=== PATIENT | female | born 1930 | race Caucasian/White ===

== ENCOUNTER 2017-05-31 19:48 | Emergency (ER) | payer MEDICARE, OTHER ==
[~2017-05-31] VITALS: Ht 157.5 cm; Wt 51.3 kg
[~2017-05-31 19:48] MED LIST: AZITHROMYCIN 2250 MG PO; B-121000 MC2 PO; BACTRIM DS TAB1 EACH PO; BONIVA; CEFPODOXIME PR200 M1 PO; CIMZIA400 MG SUBQ; CIPRO250 M1 PO; CLARITIN10 MG PO; COLACE100 MG PO; CRANBERRY200 MG PO; ELIQUIS2.5 MG PO; ELIQUIS5 MG PO; ENOXAPARIN30 MG/0.1 SUBQ; FLOMAX0.4 MG PO; FOLIC ACID0.4 MG PO; FOLIC ACID1 MG PO; HI-CAL500 MG PO; HYDROCODONE-AP1 EAC6 PO; IRON325 PO; LEVOTHYROXIN0.075 MG PO; LEVOTHYROXIN0.088 MG PO; LEVOTHYROXINE 0.1 MG PO; LIPITOR20 MG PO; MACROBID 100 M100 M2 PO; MACRODANTIN50 M1 PO; MEGACE40 MG/ML GT; MEGESTROL400 MG/11 PO; METHOTREXATE; METHOTREXATE 22.5 MG PO; MIRALAX17 G1 PO; MIRALAX17 GM PO; MOBIC15 MG PO; MOM PO; NAPROSYN500 MG PO; NEURONTIN100 MG PO; NORCO 5-325 TA1 EACH; NYSTATIN 100,0015 G1 TOP; NYSTATIN 1100000 U/M TOP; OMEPRAZOLE 20 M20 M1 PO; OTEZLA1 EAC1 PO; OTEZLA30 MG PO; PREDNISONE 5 MG5 M1 PO; PRILOSEC OTC20 MG PO; PRILOSEC20 MG PO; PROTONIX 20 MG20 M1 PO; RHEUMATREX2.5 MG PO; SENNA; SENNA8.6 MG PO; SERTRALINE HCL50 MG PO; SYNTHROID112 MCG PO; TESSALON PERLE100 MG PO; TRAMADOL 50 MG50 MG PO; TRANSDERM-SCO1 PATC1 TOP; TYLENOL325 MG PO; VITAMIN B-121000 MC1 PO; VITAMIN B-12500 MCG PO; VITAMIN B122500 MCG PO; VITAMIN D 5050000 I1 PO; ZOFRAN4 MG PO; ZOLOFT; ZOLOFT100 MG PO; ZOLOFT50 MG PO
[2017-05-31 21:47] LABS: URINE BILIRUBIN NEGATIVE (Negative); URINE BLOOD 3+ (Negative); URINE CLARITY CLEAR; URINE COLOR YELLOW; URINE GLUCOSE-RANDOM NEGATIVE (Negative); URINE KETONES NEGATIVE (Negative); URINE LEUKOCYTES-REFLEX NEGATIVE (Negative); URINE NITRITE-REFLEX NEGATIVE (Negative); URINE PROTEIN NEGATIVE (Negative); URINE SPECIFIC GRAVITY >= 1.030 (1.005-1.030); URINE UROBILINOGEN 0.2 E.U./dl (0.2-1.0)
[2017-05-31 21:52] LABS: ABSOLUTE LYMPHOCYTES 1.4 thou/uL (0.8-5.3); ABSOLUTE MONOCYTES 0.7 thou/uL (0.0-1.2); ABSOLUTE NEUTROPHILS 4.1 thou/uL (1.6-8.1); BASOPHILS 0.6 %; EOSINOPHILS 0.4 %; HEMATOCRIT 37.5 % (37.0-47.0); HEMOGLOBIN 12.5 gm/dL (12.0-15.0); LYMPHOCYTES 22.1 %; MCH 30.1 pg (26.0-34.0); MCHC 33.4 g/dL (28.0-37.0); MCV 90.2 fL (80.0-100.0); MONOCYTES 11.2 %; MPV 7.3 fl. (7.2-11.1); NUCLEATED RBCS 0 /100WBC; PLATELET COUNT* 195 thou/uL (150-400); POLYS 65.7 %; RBC 4.16 mil/uL (4.20-5.00); RDW-CV 14.9 % (10.5-14.5); WBC 6.3 thou/uL (4.0-11.0)
[2017-05-31 21:56] LABS: APTT 38.7 Seconds (25.0-31.3); INR 1.2; PROTIME 11.5 Seconds (9.20-11.50)
[2017-05-31 21:59] LABS: ANION GAP 8 mmol/L (7-16); BUN 33 mg/dL (7-18); CALCIUM 8.9 mg/dL (8.5-10.1); CHLORIDE 104 mmol/L (98-107); CO2 27 mmol/L (21-32); CREATININE 1.1 mg/dL (0.6-1.3); GLUCOSE 145 mg/dL (70-99); POTASSIUM 4.7 mmol/L (3.5-5.1); SODIUM 139 mmol/L (136-145)
[2017-05-31 22:07] LABS: ALBUMIN 3.4 g/dL (3.4-5.0); ALKALINE PHOSPHATASE 58 U/L (46-116); LIPASE 245 U/L (73-393); SGOT 16 U/L (15-37); SGPT 24 U/L (30-65); TOTAL BILIRUBIN 0.2 mg/dL (<0.1-1.0); TOTAL PROTEIN 6.6 g/dL (6.4-8.2); TROPONIN-I LEVEL <0.06 ng/mL (<0.06)
[2017-05-31 23:16] LABS: CASTS None Seen /LPF (None Seen); SQUAMOUS >10 Many /LPF (0-3)
[2017-05-31 23:17] LABS: BACTERIA-REFLEX 1-9 Few /HPF (None Seen); CRYSTALS None Seen /LPF (None Seen); TRANSITIONAL EPITHEL CELL 0-3 Few /LPF (None Seen); URINE RBC >20 Many /HPF (0-2); URINE WBC-REFLEX None Seen /HPF (0-5)
[2017-05-31] MEDS ORDERED: PREDNISONE 20 M20 MG PO (23:36)
[2017-05-31] MEDS ORDERED: XARELTO10 MG PO (23:36)
[2017-05-31] MEDS ORDERED: AREDS 2 PO (23:40)
[2017-06-01 00:14] VITALS: BP 115/66
--- NOTE | 2017-06-01 15:21 | EKG ---
[place] [address] ELECTROCARDIOGRAM REPORT Name: CEZAR MCDOWELL Room: [facility]#: [id number] Admission: 05/31/17 Attend Phys: Discharge: 06/01/17 Date of : [birth year] Report #: [id number] THIS REPORT FOR: //name// [facility] ED Test Date: 2017-05-31 Test Time: 21:22:40 Pat Name: CEZAR MCDOWELL Department: Room: Gender: F Master Automotive Glass Technician: PATTI : 1930 Requested By: Jay Jay Quach Order Number: [id number] MD: Silvio Langford Measurements Intervals [place] Rate: 84 P: 69 MA: 154 QRS: 6 QRSD: 73 T: 62 QT: 362 QTc: 428 Interpretive Statements Sinus rhythm Compared to ECG 08/29/2016 23:15:38 Sinus tachycardia no longer present Electronically Signed On 06-01-2017 15:20:54 CHEMICAL OPERATIONS SPECIALIST by Silvio Langford [email or web address] <ELECTRONICALLY SIGNED> By: Silvio Langford MD, [facility] 06/01/17 1520 21 21 Silvio Langford MD, FAC /EPI
== END 2017-06-01 00:15 | disposition home or self-care (01) ==
LOC: M.ERS 19:48
PROVIDERS: Family Medicine
DX: R10.30 Lower abdominal pain, unspecified (principal); K21.9 Gastro-esophageal reflux disease without esophagitis; E03.9 Hypothyroidism, unspecified; F32.9 Major depressive disorder, single episode, unspecified; R26.9 Unspecified abnormalities of gait and mobility; M19.90 Unspecified osteoarthritis, unspecified site; Z88.8 Allergy status to other drugs, medicaments and biological substances; Z88.1 Allergy status to other antibiotic agents

== ENCOUNTER → 2017-09-14 | Outpatient (CLI) | payer MEDICARE, OTHER ==
[~2017-09-14] MED LIST changes: +AREDS 2 PO; +CENTANY30 GM TOP; +KEFLEX500 M1 PO; +PREDNISONE 20 M20 MG PO; +REMERON15 MG PO; +THERAGRAN-M PR1 EAC1 PO; +VANCO1GM IV; +XARELTO10 MG PO
== END ==
LOC: M.RAD 12:38
DX: J92.9 Pleural plaque without asbestos (principal); R13.10 Dysphagia, unspecified

== ENCOUNTER 2017-09-23 13:01 | Emergency (ER) | payer MEDICARE, OTHER ==
[~2017-09-23] VITALS: Ht 154.9 cm; Wt 59.9 kg
[~2017-09-23 13:01] MED LIST changes: -CENTANY30 GM TOP; -KEFLEX500 M1 PO; -REMERON15 MG PO; -THERAGRAN-M PR1 EAC1 PO; -VANCO1GM IV
[2017-09-23] MEDS ORDERED: REMERON15 MG PO (13:13)
[2017-09-23 14:04] LABS: ABSOLUTE LYMPHOCYTES 1.2 thou/uL (0.8-5.3); ABSOLUTE MONOCYTES 0.7 thou/uL (0.0-1.2); ABSOLUTE NEUTROPHILS 6.4 thou/uL (1.6-8.1); BASOPHILS 0.3 %; EOSINOPHILS 0.2 %; HEMATOCRIT 34.9 % (37.0-47.0); HEMOGLOBIN 11.8 gm/dL (12.0-15.0); MCH 30.8 pg (26.0-34.0); MCHC 33.8 g/dL (28.0-37.0); MCV 91.2 fL (80.0-100.0); MONOCYTES 8.1 %; MPV 7.3 fl. (7.2-11.1); NUCLEATED RBCS 0 /100WBC; PLATELET COUNT* 160 thou/uL (150-400); POLYS 77.4 %; RBC 3.83 mil/uL (4.20-5.00); RDW-CV 15.6 % (10.5-14.5); WBC 8.3 thou/uL (4.0-11.0)
[2017-09-23 14:08] LABS: CALCIUM 9.2 mg/dL (8.5-10.1); POTASSIUM 3.4 mmol/L (3.5-5.1)
[2017-09-23 14:10] LABS: APTT 55.9 Seconds (25.0-31.3); INR 1.7; PROTIME 16.4 Seconds (9.20-11.50)
[2017-09-23 14:13] LABS: ALBUMIN 3.6 g/dL (3.4-5.0); TOTAL BILIRUBIN 0.7 mg/dL (<0.1-1.0); TOTAL PROTEIN 7.4 g/dL (6.4-8.2)
[2017-09-23] MEDS ORDERED: KEFLEX500 M1 PO (15:27)
[2017-09-23] MEDS ORDERED: BACTRIM DS TAB1 EACH PO (15:27)
[2017-09-23] MEDS ORDERED: CENTANY30 GM TOP (15:35)
[2017-09-23 16:09] VITALS: BP 126/63
== END 2017-09-23 16:10 | disposition home or self-care (01) ==
LOC: M.ERS 13:01
PROVIDERS: Nurse Practitioner Family
DX: L03.313 Cellulitis of chest wall (principal); Z45.2 Encounter for adjustment and management of vascular access device; K21.9 Gastro-esophageal reflux disease without esophagitis; E03.9 Hypothyroidism, unspecified; Z88.8 Allergy status to other drugs, medicaments and biological substances; Z88.1 Allergy status to other antibiotic agents

== ENCOUNTER 2017-09-24 10:27 | Inpatient (IN) | payer MEDICARE, OTHER ==
[2017-09-24] VITALS (7 sets, daily range): BP systolic 124–174; BP diastolic 56–81
[~2017-09-24] VITALS: Ht 152.4 cm; Wt 63.2 kg
--- NOTE | ~2017-09-24 | PROC ---
[address] [address] PROCEDURE REPORT Name: CEZAR MCDOWELL Room: [address] ADM IN M.R.#: [id number] Admission: 09/24/17 Attend Phys: Breezy Panda, Discharge: Date of : [birth year] Report #: [id number] THIS REPORT FOR: //name// For GI report, please see the Provation report in Perceptive 7 content. By: [id number] Records Staff EMILY /SANDRA
[~2017-09-24 10:27] MED LIST changes: +CENTANY30 GM TOP; +KEFLEX500 M1 PO; +REMERON15 MG PO
[2017-09-24 11:06] LABS: URINE BILIRUBIN NEGATIVE (Negative); URINE BLOOD NEGATIVE (Negative); URINE CLARITY CLEAR; URINE COLOR YELLOW; URINE GLUCOSE-RANDOM NEGATIVE (Negative); URINE KETONES TRACE (Negative); URINE LEUKOCYTES-REFLEX NEGATIVE (Negative); URINE NITRITE-REFLEX NEGATIVE (Negative); URINE PROTEIN NEGATIVE (Negative); URINE UROBILINOGEN 0.2 E.U./dl (0.2-1.0)
[2017-09-24 11:27] LABS: ABSOLUTE LYMPHOCYTES 1.3 thou/uL (0.8-5.3); ABSOLUTE MONOCYTES 0.9 thou/uL (0.0-1.2); ABSOLUTE NEUTROPHILS 7.1 thou/uL (1.6-8.1); BASOPHILS 0.5 %; EOSINOPHILS 0.3 %; HEMOGLOBIN 12.3 gm/dL (12.0-15.0); LYMPHOCYTES 13.5 %; MCH 30.7 pg (26.0-34.0); MCHC 34.1 g/dL (28.0-37.0); MCV 90.1 fL (80.0-100.0); MONOCYTES 9.5 %; MPV 7.1 fl. (7.2-11.1); NUCLEATED RBCS 0 /100WBC; PLATELET COUNT* 163 thou/uL (150-400); POLYS 76.2 %; RBC 3.99 mil/uL (4.20-5.00); RDW-CV 15.3 % (10.5-14.5); WBC 9.3 thou/uL (4.0-11.0)
[2017-09-24 11:38] LABS: CALCIUM 8.8 mg/dL (8.5-10.1); CREATININE 0.9 mg/dL (0.6-1.3); POTASSIUM 3.4 mmol/L (3.5-5.1)
[2017-09-24 11:42] LABS: ALBUMIN 3.2 g/dL (3.4-5.0); TOTAL BILIRUBIN 0.7 mg/dL (<0.1-1.0); TOTAL PROTEIN 6.9 g/dL (6.4-8.2)
--- NOTE | 2017-09-24 12:03 | NUR ---
DR. KHAN TO SEE PT TO DISCUSS THE NEED FOR A MIDLINE, PT AND FAMILY AGREE. PT TAKEN TO INFUSION LAB FOR MIDLINE PLACEMENT. IV ANTIBIOTICS NOT GIVEN DUE TO PT NOT HAVING ADQUATE IV.
--- NOTE | 2017-09-24 12:25 | NUR ---
ARRIVED TO INFUSION VIA CART. DISCUSSION WITH PT RISK AND BENIFIT OF MIDLINE. VOICED UNDERSTANDING AND AGREED. LEFT UPPER ARM ASSESSED WITH ULTRASOUND. LEFT BASILIC IDENTIFED AND NOTED TO BE WIDLEY PATENT. 11CM MIDLINE PLACED PER HOSPITAL POLICY. LINE ADVANCED WITH EASE. GOOD BRISK BLOOD RETURN NOTED FLUSHED WITH EASE. LINE SECURED AND RELEASED FOR USE.
[2017-09-24 13:19] LABS: CALCIUM 8.7 mg/dL (8.5-10.1); CREATININE 0.8 mg/dL (0.6-1.3); MAGNESIUM 1.9 mg/dL (1.8-2.4); POTASSIUM 3.4 mmol/L (3.5-5.1)
[2017-09-24 16:51] LABS: BE -2.4 mmol/L (-2 to +3); HCO3 21.5 mmol/L (22.0-26.0); PCO2 34.5 mmHg (35.0-45.0); PO2 82.7 mmHg (75.0-100.0); pH 7.412 (7.340-7.450)
--- NOTE | 2017-09-24 17:32 | NUR ---
ADMITTED PATIENT FROM ED AT 1315. ALERT AND ORIENTED X4. ASSESSMENT COMPLETED AND CHARTED. VSS ON ROOM AIR. PATIENT HAD NO COMPLAINTS OF PAIN, NAUSEA, OR SOA UPON ADMISSION. ADMISSION HISTORY COMPLETED. ANTIBIOTICS AND FLUIDS ORDERED AND ADMINISTERED. PATIENT CALLED OUT AT APPROXIMATELY 1620 WITH COMPLAINT OF SOA, 02 SATS IN THE MID 80'S ON ROOM AIR. 02 APPLIED AND TITRATED TO 3 LITERS TO MAINTAIN SATURATION OF 93%. PATIENTS TEMP WAS WNL BUT IS ELEVATING TO 99.7. DR KHAN NOTIFIED IMMEDIATELY AND HE ORDERED RT TX, ABGS AND TRANSFER TO TELEMETRY. PATIENT TRANSFERRED OFF UNIT TO [facility] AT 1730. HOURLY ROUNDS MAINTAINED WHILE PAT HAS BEEN ON UNIT. NURSING WILL CONTINUE TO MONITOR.
--- NOTE | 2017-09-24 18:46 | NUR ---
PATIENT ARRIVED THIS EVENING FROM ORTHO-SURG PER BED. PATIENT IS ALERT AND ORIENTED X 4. PATIENT PLACED ON THE TELE MONITOR AND VS OBTAINED. PATIENT IS RESTING AT THIS TIME WITHOUT RESPIRATORY DISTRESS. TELE SHOWS SR. WILL REPORT TO CABANA ATTENDANT
[2017-09-25] VITALS: BP 100/61
--- NOTE | 2017-09-25 03:55 | NUR ---
ASSUMED PT CARE AT 1930. ASSESSMENT COMPLETED CHARTED. PT IN BED RESTING AT THIS TIME. PT HAD TEMP EARLIER IN SHIFT AND WAS RESOLVED WITH TAKING OFF HER WARM BLANKET AND COLD WASHRAGS. NO PAIN OR DISCOMFORT NOTED. HARD OF HEARING. FAMILY WENT HOME AROUND 1999 TO SLEEP. WILL CONTINUE TO MONITOR.
[2017-09-25 04:00] VITALS: BP 100/48
[2017-09-25 05:14] LABS: HEMATOCRIT 33.1 % (37.0-47.0); HEMOGLOBIN 10.9 gm/dL (12.0-15.0); MCH 30.3 pg (26.0-34.0); MCHC 32.9 g/dL (28.0-37.0); MCV 92.2 fL (80.0-100.0); MPV 7.4 fl. (7.2-11.1); RBC 3.59 mil/uL (4.20-5.00); RDW-CV 15.8 % (10.5-14.5); WBC 7.9 thou/uL (4.0-11.0)
[2017-09-25 06:02] LABS: CALCIUM 8.6 mg/dL (8.5-10.1); CREATININE 1.3 mg/dL (0.6-1.3); MAGNESIUM 1.9 mg/dL (1.8-2.4); POTASSIUM 3.8 mmol/L (3.5-5.1)
[2017-09-25 08:00] VITALS: BP 95/52
[2017-09-25 11:35] VITALS: BP 85/37
[2017-09-25 15:45] VITALS: BP 85/42
--- NOTE | 2017-09-25 17:55 | NUR ---
RECEIVED REPORT AND ASSUMED CARE AT 0700. VSS. CARDIAC MONITORING IN PLACE. PT DENIES ANY COMPLAINTS OF PAIN. ASSESSMENT COMPLETED CHARTED. DISCUSSED PLAN OF CARE WITH PT, VERBALIZED UNDERSTANDING. PT MIDLINE PARTIALLY PULLED WHEN TRANSFERRING. PER PHYSICIAN, OK TO LEAVE IN AT CURRENT PLACEMENT WITH NEW DRESSING PERIPHERAL LINE. STILL ABLE TO DRAW BLOOD. PT TOLERATING IV ANTIBIOTICS. SLIGHT DROP IN BP, 500 ML BOLUS ADMINISTERED PER ORDERS. VSS. HOURLY ROUNDING COMPELTED, ALL NEEDS MET, POSITION CHANGES MADE EVERY TWO HOURS. PT ON 3L NC, UP WITH ASSIST WITH WALKER TO BATHROOM. NURSING WILL CONTINUE TO MONITOR
[2017-09-25 20:00] VITALS: BP 121/52
[2017-09-26] VITALS (7 sets, daily range): BP systolic 103–154; BP diastolic 47–74
--- NOTE | 2017-09-26 04:34 | NUR ---
ASSUMED PT CARE AT 1930. ASSESSMENT COMPLETED CHARTED. PT LAYING IN BED AT THIS TIME, IV FLUIDS INFUSING. UP WITH STANDBY WITH WALKER. WILL CONTINUE TO MONITOR.
[2017-09-26 05:32] LABS: HEMOGLOBIN 9.4 gm/dL (12.0-15.0); MCH 30.7 pg (26.0-34.0); MCHC 33.4 g/dL (28.0-37.0); MCV 91.8 fL (80.0-100.0); MPV 8.3 fl. (7.2-11.1); NUCLEATED RBCS 0 /100WBC; PLATELET COUNT* 118 thou/uL (150-400); RBC 3.05 mil/uL (4.20-5.00); RDW-CV 16.1 % (10.5-14.5); WBC 5.1 thou/uL (4.0-11.0)
[2017-09-26 05:52] LABS: CALCIUM 8.3 mg/dL (8.5-10.1); CREATININE 1.1 mg/dL (0.6-1.3); POTASSIUM 3.7 mmol/L (3.5-5.1)
[2017-09-26 06:38] LABS: ABSOLUTE LYMPHOCYTES 0.3 thou/uL (0.8-5.3); ABSOLUTE MONOCYTES 0.4 thou/uL (0.0-1.2); ABSOLUTE NEUTROPHILS 4.4 thou/uL (1.6-8.1); PLATELET ESTIMATE ADEQUATE
--- NOTE | 2017-09-26 12:13 | CON ---
[address] [address] CONSULTATION Name: CAROL MCDOWELL Room: [address] IN M.R.#: [id number] Admission: 09/24/17 Attend Phys: Breezy Panda, Discharge: Date of : [birth year] Report #: [id number] THIS REPORT FOR: //name// CC: Candido Panda DATE OF SERVICE: 09/25/2017 CONSULTATION: Infectious Diseases. HISTORY OF PRESENT ILLNESS: Carol Deras is an 87-year-old white female who had a PICC line for 15 months for intermittent fluid infusions when she would get dehydrated. Apparently at home, the patient was having some discomfort at the PICC line insertion site. The dressing was redone and the line became partially displaced when the tape was pulled off. Later that day, the patient got up to go to the bathroom and says, "the PICC line just fell out. The patient went to the Emergency Room on 09/23/2017 for evaluation. It was noted at that time, there was about 5 x 2 cm area of erythema around the PICC line site. The patient otherwise appeared to be doing okay. Interventional Radiology recommended that the patient be treated with Bactrim plus Keflex. Blood cultures x 2 were obtained. The patient was told to come back to the ER when one of the 2 blood cultures began to grow gram-positive cocci. The patient really was not having any other complaints other than some discomfort which she attributed to the PICC line dressing. She denies fevers, chills, sweats. The patient denies any systemic illness related to her PICC line. The patient is 87 and her reliability as a historian may be less than perfect. PAST MEDICAL DIAGNOSES: Include gastroesophageal reflux, hypothyroidism, depression, low back pain due to spinal stenosis as well as a number of compression fractures, particularly at T7. The patient has arthritis. 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 The patient is also on prednisone for a diagnosis which is not clear. She has been a long-term nitrofurantoin, presumably for UTI prophylaxis. ALLERGIES: THE PATIENT NOTES DRUG ALLERGIES TO SCOPOLAMINE, WHICH CAUSES DELIRIUM WELL CIPRO. MEDICATION RECONCILIATION: Current medications are as follows: Ergocalciferol 50,000 units subq weekly, multivitamins daily, folic acid 1 mg daily, prednisone 20 mg daily, rivaroxaban 10 mg daily, B12 1000 mg daily, L-thyroxine 100 mcg daily, pantoprazole 20 mg daily, vancomycin 500 mg q.12 hours, Zosyn 3.375 grams every 8 hours, sertraline 100 mg daily, mirtazapine 7.5 mg at bedtime, tamsulosin 0.4 mg at bedtime, DuoNeb inhaler, mupirocin ointment, IV [place] [address] CONSULTATION Name: BRANDON MCDOWELLOMI JOESPH Room: [address] IN M.R.#: [id number] Admission: 09/24/17 Attend Phys: Breezy Panda, Discharge: Date of : [birth year] Report #: [id number] FAMILY HISTORY: Noncontributory. SOCIAL HISTORY: The patient's chart shows her to be . She lives in a duplex with her daughter on the other side of the duplex. No history of tobacco or alcohol. REVIEW OF SYSTEMS: At this time, the patient really offers no complaints, although she may not be very reliable. She is not aware of fevers, chills, sweats. She is not aware of headache, sinus congestion, sore throat, trouble swallowing. The patient has no cough, chest pain, shortness of breath. No angina, syncope, palpitations. She has no pain from the PICC line IV site. She has no nausea, vomiting, diarrhea, constipation. No urinary complaints. No pain in the extremities. PHYSICAL EXAMINATION: GENERAL: The patient appears her stated age, alert, oriented, comfortable, not in any distress. VITAL SIGNS: Show maximum measured temperature 100.4. The patient was afebrile at the time of my examination. SKIN: Shows no rash. The PICC line site shows a small wound with minimal amount of yellowish serous drainage. The erythema around the site is consistent with just irritation from the dressing, it does not look particularly cellulitic. The patient does have a new midline catheter in the left arm, which has become partially displaced and is bleeding. The nurses are currently repairing that dressing. ENT: Negative. NECK: Supple. CARDIOVASCULAR: Heart sounds normal. LUNGS: Clear. ABDOMEN: Belly soft, nontender. EXTREMITIES: Other than the bleeding, midline catheter unremarkable. NEUROLOGIC: The patient is awake, alert, oriented. LABORATORY DATA: White count is 7.9. Hemoglobin has gone from 12.3 to 10.9 with hydration. Platelet 121,000. Electrolytes normal, BUN 22, creatinine 1.3, glucose 122. Albumin is 3.2. Liver function tests are normal. Sedimentation rate elevated at 50. CRP is 27. Urinalysis is normal. Blood cultures from 09/23/2017 show gram-positive cocci in 1 out of 2 sets. Identification and sensitivities are pending. Blood cultures x 2 from 09/24/2017 are pending at this time. Chest x-ray shows no acute disease. There are pleural plaques noted as well as atherosclerotic disease of the aorta and compression fractures of the spine. IMPRESSION: Displaced PICC line with 1 out of 2 blood cultures [place] [address] CONSULTATION Name: CAROL MCDOWELL Room: [address] IN M.R.#: [id number] Admission: 09/24/17 Attend Phys: Breezy Panda, Discharge: Date of : [birth year] Report #: [id number] This may just represent contamination of the blood culture in a patient with a difficult stick. She really does not have any other evidence to suggest PICC line sepsis. She did have a slight fever. She does have increased inflammatory markers with a sedimentation rate and CRP. She has degenerative joint disease. She is on prednisone, so there may be another underlying inflammatory process that I am not aware of. I suggest that we stop the Zosyn and treat the patient with vancomycin pending results of cultures. If this ultimately is 1 of 4 blood cultures with Coag-negative Staph or diphtheroid, this could probably be attributed as a contaminant. If there is Staph aureus or multiple positive blood cultures, additional treatment will be needed. I would like to check the patient's TSH. We can stop the Zosyn at this point. If the cultures are ultimately suggestive of a contaminated blood culture, the patient will probably be able to go home on no antibiotics in another day or so. I appreciate the opportunity of input in the care of this pleasant patient. Thank you for requesting Infectious Disease consultation. <ELECTRONICALLY SIGNED> By: Andrew Riley MD 09/26/17 1213 0854 [id number] Riley MD /nt
--- NOTE | 2017-09-26 18:49 | NUR ---
ASSUMED RESPONSIBILITY OF PT THIS AM PT IS ALERT AND ORIENTED VENETIE IRA UP WITH STANDBY ASSIST GAITBELT WITH WALKER HAD BM DENIES ANY PAIN OR DISCOMFORT UP IN CHAIR HALF THE DAY IV FLUIDS CONT TO ABUNDIO MIDLINE IV ABT WELL OXYGEN TRIED TO WEAN OFF BUT PT STILL FELT SOA WITH EXERTION AND KEPT 1L ON FOR COMFORT SATS ARE OKAY AT 97% BEGAN ACCUCHECKS FOR ELEVATED BLOOD SUGAR AND INSULIN STARTED NOW CALL LIGHT IN REACH
--- NOTE | 2017-09-27 02:30 | NUR ---
ASSUMED PT CARE AT 1930. ASSESSMENT COMPLETED CHARTED. PT RESTING IN BED AT THIS TIME. NO C/O PAIN OR DISCOMFORT. ABLE TO MAKE NEEDS KNOWN, CALL LIGHT WITHIN REACH. IVF INFUSING AT 70 AN HOUR IN MIDLINE. WILL CONTINUE TO MONITOR.
[2017-09-27 04:00] VITALS: BP 170/89
[2017-09-27 05:01] LABS: HEMATOCRIT 28.2 % (37.0-47.0); HEMOGLOBIN 9.5 gm/dL (12.0-15.0); MCHC 33.8 g/dL (28.0-37.0); MCV 91.9 fL (80.0-100.0); MPV 7.9 fl. (7.2-11.1); RBC 3.06 mil/uL (4.20-5.00); RDW-CV 15.8 % (10.5-14.5); WBC 4.6 thou/uL (4.0-11.0)
[2017-09-27 05:29] LABS: ALBUMIN 2.5 g/dL (3.4-5.0); CALCIUM 8.2 mg/dL (8.5-10.1); CREATININE 0.9 mg/dL (0.6-1.3); POTASSIUM 3.7 mmol/L (3.5-5.1); TOTAL BILIRUBIN 0.2 mg/dL (<0.1-1.0); TOTAL PROTEIN 5.7 g/dL (6.4-8.2)
[2017-09-27 08:30] VITALS: BP 161/71
[2017-09-27 11:30] VITALS: BP 132/65
--- NOTE | 2017-09-27 13:08 | NUR ---
ASSUMED PT CARE AT 0730, FULL ASSESMENT DONE CHARTED. PT A/O X4, VERY [place], WEAK, ASSIST OF 1 TO BATHROOM WITH WALKER, PT IS SOA WITH AMBULATION, ALSO GETS SOA WHEN EATING/TAKING PILLS. PT EATS VERY SLOW. WEARING 1.5L 02 THIS AM. VSS, HR SLIGHTLY ELEVATED, SEPSIS SCREEN NEGATIVE. PT USES CALL LIGHT APPROPRIALTY. FALL PRECATUIONS IN PLACE. WILL CONTINUE WITH PLAN OF CARE.
--- NOTE | 2017-09-27 13:53 | NUR ---
Pt is A&O. Dtr is at bedside. Pt lives at home alone in a duplex, dtr lives in the other duplex. Dtr does cooking, cleaning and driving. Pt is able to complete her own bathing and grooming. Pt has a walker and wc that she can use as needed. Pt was discharged on [facility] in August 2016, Pt has since dc from hospice, but remains on [facility]. Hx of [facility]. Hx of skilled at [facility]. Pt does not wear home o2. Goal is to return home at ar. Following.
[2017-09-27 16:00] VITALS: BP 148/74
[2017-09-27 21:12] VITALS: BP 144/72
[2017-09-27 23:37] VITALS: BP 150/73
[2017-09-28 04:00] VITALS: BP 158/78
[2017-09-28 08:20] VITALS: BP 150/84
--- NOTE | 2017-09-28 08:24 | NUR ---
PT IS ABLE TO COMMUNICATE HER NEEDS TO STAFF WITH MINOR DIFFICULTY; SHE IS VERY HJYV-UK-SCNWURU. SHE HAS DENIED THE NEED FOR PAIN MEDICATION UP TO THIS TIME. SHE IS STILL SOA WITH EXERTION AND SOMETIMES WHILE TAKING MEDS. XARELTO IS BEING HELD UNTIL FURTHER NOTICE FOR POSSIBLE EGD SOON.
[2017-09-28 11:30] VITALS: BP 127/52
--- NOTE | 2017-09-28 14:26 | NUR ---
ASSUMED CARE OF PT AT 0730. PT RESTING IN BED WAITING FOR BREAKFAST. PT A&0X4, TREMORS NOTED. PT DENIES ANY PAIN OR SHORTNESS OF BREATH AT THIS TIME. PT BECOMES SHORT OF BREATH WITH ACTIVITY/ EXERTION. PT TRACING ST ON THE MERCHANDISER RETAIL REPRESENTATIVE. RATE UP TO 120'S. ON 2L NC SAT 97%. PT HAS STRESS INCONT. IVF. PT UP WITH 1 ASSIST WALKER TO BATHROOM. XARELTO ON HOLD PER GI FOR POSSIBLE EGD TOMORROW OR WEDNESDAY. PT GOAL FOR TODAY IS TO KEEP HEART RATE BELOW 110. AM ASSESSMENT CHARTED. MEDICATIONS PER JUN. PT REPOSITIONS SELF WITH REMINDERS. HOURLY ROUNDING OBSERVED. BED IN LOW POSITION. BED/CHAIR ALARM IN PLACE. FALL PRECAUTIONS IN PLACE. CALL LIGHT WITHIN REACH.
[2017-09-28 16:00] VITALS: BP 121/61
--- NOTE | 2017-09-28 17:37 | NUR ---
NO ACUTE CHANGES THROUGHOUT SHIFT. REFER TO CHARTING. PT SLOWLY PROGRESSING TOWARDS GOALS. HEART RATE IN THE 110'S-120'S THROUGHOUT SHIFT, MOSTLY WHEN AMBULATING. PT ALSO HAS NOTED TREMORS. PT IS ASYMPTOMATIC. PT COMPLAINS OF SHORTNESS OF BREATH WITH ACTIVITY BUT WHEN IS ENCOURAGED ON DEEP/PROPER BREATHING TECHNIQUES- PT FEELS BETTER. VANC TROUGH CRITICAL AT 22. PHARMACY RE DOSED NEEDED VANC AND GIVEN PER JUN. GI HERE TO SEE PT. PLAN IS FOR EGD SATURDAY 09/30, PT IS TO NOT RECEIVE XARELTO. PT CONTINUES TO TRACE ST ON THE WAXER. ON 2L NC SAT UPPER 90'S. GERD NOTED. PT HAD BOWEL MOVEMENT TODAY. STRESS INCONT NOTED. IVF. PT UP WITH 1 ASSIST WALKER TO BATHROOM. PT REFUSES TO HAVE CREAM TO TIC LINE AREA. PT DAUGHTERS AT BEDSIDE THIS AFTERNOON AND UPDATED ON CURRENT CARE PLAN. MEDICATIONS PER JUN. PT REPOSITIONS SELF WITH REMINDERS. HOURLY ROUNDING OBSERVED. BED IN LOW POSITION. BED ALARM IN PLACE. FALL PRECAUTIONS IN PLACE. CALL LIGHT WITHIN REACH. WILL CONTINUE PLAN OF CARE.
[2017-09-28 19:45] VITALS: BP 119/86
[2017-09-29] VITALS: BP 125/61
[2017-09-29 04:00] VITALS: BP 142/60
--- NOTE | 2017-09-29 05:31 | NUR ---
RECEIVED REPORT AND ASSUMED CARE AT 1900. VSS. CARDIAC MONITORING IN PLACE. PT DENIES ANY COMPLIANTS OF PAIN. ASSESSMENT COMPLETED CHARTED. PT UP WITH ASSIST WITH WALKER TO BSC. PT ON 2L NC. DISCUSSED PLAN OF CARE WITH PT, VERBALIZED UNDERSTANDING. PT SCHEDULED FOR EGD ON 09/30, PT TO NOT RECEIVE HER XARELTO UNITL AFTER THE PROCEEDURE. MEDICATIONS ADMIN PER ORDERES. HOURLY ROUNDING COMPLETED, ALL NEEDS MET. NURSING WILL CONTINUE TO MONITOR.
[2017-09-29 08:00] VITALS: BP 139/62
--- NOTE | 2017-09-29 10:35 | EKG ---
[place] [address] ELECTROCARDIOGRAM REPORT Name: CEZAR MCDOWELL Room: [address] ADM IN M.R.#: [id number] Admission: 09/24/17 Attend Phys: Breezy Panda, Discharge: Date of : [birth year] Report #: [id number] THIS REPORT FOR: //name// [facility] Test Date: 2017-09-28 Test Time: 18:13:28 Pat Name: CEZAR MCDOWELL Department: Room: [address] Gender: F Renal Medicine Physician: CSIBERT : 1930 Requested By: Breezy Panda Order Number: [id number] Rachelle MD: Jordan Gutierrez Measurements Intervals [place] Rate: 133 P: 63 SD: 134 QRS: -2 QRSD: 73 T: 59 QT: 302 QTc: 450 Interpretive Statements Sinus tachycardia Compared to ECG 05/31/2017 21:22:40 Sinus rhythm no longer present Electronically Signed On 09-29-2017 10:35:07 CDT by Jordan Gutierrez [email or web address] <ELECTRONICALLY SIGNED> By: Jordan Gutierrez MD, [facility] 09/29/17 1035 12 12 Jordan Gutierrez MD, FACC /EPI
[2017-09-29 12:00] VITALS: BP 123/60
--- NOTE | 2017-09-29 12:56 | NUR ---
ASSUMED CARE OF PATIENT THIS AM AT 0730. PATIENT IS ALERT AND ORIENTED X 4. SHE DENIES PAIN AND DISCOMFORT THIS AM. PATIENT HAS BEEN ASSISTED UP TO THE CHAIR. TELE SHOWS SR TO ST. PLANS FOR PROCEDURE BY GI IN THE AM. IV FLUIDS INFUSING PER ORDER. WILL CONTINUE TO MONITOR.
--- NOTE | 2017-09-29 14:45 | CON ---
[address] [address] CONSULTATION Name: JULYCEZAR LEE Room: [address] IN M.R.#: [id number] Admission: 09/24/17 Attend Phys: Breezy Panda, Discharge: Date of : [birth year] Report #: [id number] THIS REPORT FOR: //name// CC: Candido Panda DICTATED BY: aRdha CALDERON DATE OF SERVICE: 09/27/2017 PRIMARY CARE PHYSICIAN: KVNG Caldwell. Please note at the time of this dictation, the patient was seen and physically examined by myself. REASON FOR CONSULTATION: Difficulty swallowing. HISTORY OF THE PRESENT ILLNESS: This is an 87-year-old female who is well known to our practice, who was admitted for some discomfort at her PICC line insertion site where then it had partially been displaced and came out. She was evaluated in the ER and had blood work done and also noted some erythema around the PICC site and was sent home on antibiotics. When the cultures came back for gram-positive cocci, she was informed to come back into the hospital, so that she could get IV antibiotics at that time. During this timeframe, the patient was seen by Dr. Nagy on 03 of August and she underwent an EGD at that time for her complaints of dysphagia and that food was not going down. EGD showed esophagus that was moderately torturous and she had a 3 cm hiatal hernia. No other abnormalities were noted. Dilatation was performed with a Yaquelin dilator with no resistance at 52 and 54 [place]. She then subsequently underwent a barium swallow, which indicated that her esophagus does not empty very easily. She has a lot of spasms with the esophagus and poor emptying of the distal esophagus. In reviewing all of those films and her ongoing issues with dysphagia, it was recommended for her to have undergo an EGD with Botox of the LES or the lower esophageal sphincter to see if this would help facilitate emptying of her esophagus. We were in the process with our office and making arrangements for her to get this done as an outpatient on the inpatient side. We were consulted since the patient is on the inpatient to see if we could do that during her hospitalization. The patient is on Xarelto, which will need to be held and has been held this morning, to be able to do the Botox injections, she is on Xarelto for history of PE. ALLERGIES: CIPROFLOXACIN and SCOPOLAMINE. MEDICATIONS FROM HOME: Include vitamin D, multivitamin, folic acid, prednisone, Xarelto, B12, levothyroxine, pantoprazole, vancomycin, Zosyn, , nitrazepam, [place] [address] CONSULTATION Name: CEZAR MCDOWELL Room: [address] IN M.R.#: [id number] Admission: 09/24/17 Attend Phys: Breezy Panda, Discharge: Date of : [birth year] Report #: [id number] tamsulosin and DuoNeb inhaler. PAST MEDICAL HISTORY: GERD, hypothyroidism, depression, low back pain due to spinal stenosis and history of compression fractures, arthritis and history of PE. The patient has a PICC line for the last 15 months or so for intermittent infusion of fluids per the patient when she would get dehydrated. PAST SURGICAL HISTORY: Negative. FAMILY HISTORY: Noncontributory. SOCIAL HISTORY: She is . She lives in a duplex with her daughter on the other side. No history of tobacco or alcohol use. REVIEW OF SYSTEMS: Twelve-point review of systems is essentially negative except what is mentioned in the HPI. PHYSICAL EXAMINATION: VITAL SIGNS: Temperature 37.2, pulse 88, respirations 16 and blood pressure 170/89. HEART: Regular rate and rhythm. CHEST: Lungs are clear but diminished. ABDOMEN: Soft. Positive bowel sounds in all 4 quadrants with no masses or tenderness noted. LABORATORY DATA: Hemoglobin 9.5, hematocrit 28.2, white count is 4.6 and platelets 134. Sodium 144, potassium 3.7, chloride 112, CO2 of 25, BUN is 20, creatinine 0.9, GFR is 59 and glucose is 118. IMPRESSION: 1. Dysphagia, ongoing. 2. Anticoagulant therapy, Xarelto, pulmonary embolism. 3. Bacteremia, positive blood cultures. 4. Anemia, chronic. 5. Thrombocytopenia. PLAN: 1. We will hold Xarelto. We will need to check with Dr. Monsalve for pending EGD with Botox injection. 2. EGD with Botox to be done on Wednesday or tentatively of this week when she has been off the Xarelto for 3-4 days. 3. Further recommendations will be made after the procedure has been performed and can assess her response. [address] [address] CONSULTATION Name: CEZAR MCDOWELL Room: M.213-P ADM IN M.R.#: [id number] Admission: 09/24/17 Attend Phys: Breezy Panda, Discharge: Date of : [birth year] Report #: [id number] Thank you for allowing us to participate in this patient's care. Please do not hesitate to call with any questions in regard to this consult. <ELECTRONICALLY SIGNED> By: Carlos Agarwal MD 09/29/17 1445 1003 [id number] Agarwal MD /nt
--- NOTE | 2017-09-29 15:57 | NUR ---
Pt's nurse through [facility] is Karina Wiggins, , Pt wants to resume services at pr.
[2017-09-29 16:00] VITALS: BP 141/63
--- NOTE | 2017-09-29 18:19 | 2DMMODE ---
[place] [address] 2 D/M-MODE ECHOCARDIOGRAM Name: CEZAR MCDOWELL Room: [address] IN [facility]#: [id number] Admission: 09/24/17 Attend Phys: Breezy Chaudhry Discharge: Date of : [birth year] Date of Service: 09/29/17 1819 Report #: [id number] THIS REPORT FOR: //name// APPROVED REPORT Study performed: 09/29/2017 15:56:17 EXAM: Comprehensive 2D, Doppler, and color-flow Echocardiogram Patient Location: In-Patient Room #: 213 Status: routine BSA: 1.59 HR: 127 bpm BP: 123/60 mmHg Rhythm: NSR Other Information Study Quality: Good Indications Sepsis 2D Dimensions LVEF(%): 62.49 (>50%) IVSd: 12.15 (7-11mm) LVOT Diam: 20.30 (18-24mm) LVDd: 32.37 mm PWd: 10.06 (7-11mm) Ascending Ao: 33.62 (22-36mm) LVDs: 21.78 (25-40mm) Aortic Root: 32.66 mm Carrion's LVEF: 62.49 % Volumes Left Atrial Volume (Systole) LA ESV Index: 18.80 mL/m2 Aortic Valve AoV Peak Harry.: 1.51 m/s AO Peak Gr.: 9.11 mmHg LVOT Max P.27 mmHg AO Mean Gr.: 4.73 mmHg LVOT Mean P.58 mmHg LVOT Max V: 1.25 m/s AO V2 VTI: 24.53 cm LVOT Mean V: 0.72 m/s ONELIA (VTI): 2.74 cm2 LVOT V1 VTI: 20.79 cm Pulmonary Valve PV Peak Harry.: 1.21 m/s PV Peak Gr.: 5.83 [place] [address] 2 D/M-MODE ECHOCARDIOGRAM Name: CEZAR MCDOWELL Room: [address] IN ..#: [id number] Admission: 09/24/17 Attend Phys: Breezy Chaudhry Discharge: Date of : [birth year] Date of Service: 09/29/17 1819 Report #: [id number] Tricuspid Valve TR Peak Gr.: 28.66 mmHg RVSP: 33.00 mmHg Left Ventricle The left ventricle is normal size. There is normal LV segmental wall motion. There is normal left ventricular wall thickness. Left ventricular systolic function is normal. The left ventricular ejection fraction is within the normal range. LVEF is 60-65%. The left ventricular diastolic function is normal. Right Ventricle The right ventricle is normal size. The right ventricular systolic function is normal. Atria The left atrium size is normal. The right atrium size is normal. Aortic Valve The Aortic valve is sclerotic. No aortic regurgitation is present. There is no aortic valvular stenosis. Mitral Valve The mitral valve is normal in structure. There is no mitral valve regurgitation noted. No evidence of mitral valve stenosis. Tricuspid Valve The tricuspid valve is normal in structure. Mild tricuspid regurgitation. The RVSP is 30-35 mmHg. Pulmonic Valve The pulmonary valve is normal in structure. There is no pulmonic valvular regurgitation. Great Vessels The aortic root is normal in size. IVC is normal in size and collapses with >50% inspiration Pericardium There is no pericardial effusion. <Conclusion> [place] [address] 2 D/M-MODE ECHOCARDIOGRAM Name: CEZAR MCDOWELL Room: [address] IN M.R.#: [id number] Admission: 09/24/17 Attend Phys: Breezy Chaudhry Discharge: Date of : [birth year] Date of Service: 09/29/171818 Report #: [id number] LVEF is 60-65%. The Aortic valve is sclerotic. <ELECTRONICALLY SIGNED> By: Jordan Gutierrez MD, [facility] 09/29/171818 18 1819 Jordan Gutierrez MD, FACC /INF
[2017-09-29 19:30] VITALS: BP 142/64
[2017-09-30] VITALS (8 sets, daily range): BP systolic 131–169; BP diastolic 69–86
--- NOTE | 2017-09-30 04:00 | NUR ---
RECEIVED REPORT AND ASSUMED CARE AT 1900. VSS. CARDIAC MONITORING IN PLACE. PT DENIES ANY COMPLAINTS OF PAIN. ASSESSMENT COMPLETED CHARTED. MEDICATIONS ADMIN PER ORDERS. PT UP WITH ASSIST TO BSC, ON 2L NC. DISCUSSED PLAN OF CARE WITH PT. VERBALIZED UNDERSTANDING. PT COMMUNICATES UNDERSTANDING OF NPO AFTER MIDNIGHT R/T EGD SCHEDULED FOR 09/30/17. HOURLY ROUNDING COMPLETED AND ALL NEEDS MET. NURSING WILL CONTINUE TO MONITOR FOR REMAINDER OF THE SHIFT
--- NOTE | 2017-09-30 11:00 | NUR ---
ASSUMED CARE OF PT AFTER REPORT AT 729. PT A&OX4.VSS. PHYSICAL ASSESSMENT COMPLETED AND CHARTED.PT ON 02 VIA NC 2LPM WITH 97% O2 SAT. PT IV LINE IS PATENT AND INTACT. ST ON TELE. UP WITH 1 ASSIST. MAINTAINED ON NOTHING PER [place]. FOR EGD TODAY. DENIES ANY PAIN OR COMPLAINS AT THIS TIME. CALL LIGHT WITHIN REACH. WILL CONTINUE TO MONITOR PT.
--- NOTE | 2017-09-30 11:00 | NUR ---
ASSUMED CARE OF PT AFTER REPORT AT 0730. PT A&O4. VSS. PHYSICAL ASSESSMENT COMPLETED AND CHARTED.PT ON O2 VIA NASAL CANNULA WITH 97% O2 SAT. ST
[2017-09-30 11:23] LABS: INR 1.1; PROTIME 10.5 Seconds (9.20-11.50)
--- NOTE | 2017-09-30 12:44 | NUR ---
CM spoke with Dr Delgado, anticipate that Pt will need IVABX at [place]. Faxed facesheet and med order to [facility], asked that they contact CM with cost of medication. Family still discussing home with HH and IVABX vs. snf. Following.
--- NOTE | 2017-09-30 15:29 | NUR ---
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 SPOKE WITH DAUGHTER AND SON AND PT REGUARDING RISK AND BENIFIT OF PICC. VOICED UNDERSTANDING AND AGREED. RIGHT UPPER ARM ASSESSED WITH ULTRASOUND. RIGHT BASILIC IDENTIFIED AND NOTED TO BE WIDLEY PATENT. 4FR SINGLE LUMAN POWER PICC PLACED PER HOSPITAL POLICY. TRIM AT 40CM AND ADVANCED 38CM TO LEAVE 2CM EXTERNAL. GOOD BRISK BLOOD RETURN AND FLUSH WITH EASE. TIP OF LINE CONFIRMED WITH SHERLOCK 3CG. LINE SECURED AND RELEASED FOR USE. PRIMARY NURSING AWARE
--- NOTE | 2017-09-30 18:32 | NUR ---
PT A&OX4. PT ON O2 VIA NC @ 2LPM WITH 97 O2 SATS.EGD DONE AND REVEALS LA GRADE B REFLUX ESOPHAGITIS. PICC LINE INSERTED ORDERED. 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 PICC LINE DRESSING SATURATED AND WAS CHANGED.ORDERS RECEIVED TO TRANSFER PT TO [facility]. REPORT CALLED TO NURSE TO ASSUME CARE WITH ALL QUESTIONS AND CONCERNS ADDRESSED. PT TRANSFERRED WITH BELONGINGS TO [facility] PER NURSING STAFF VIA WHEELCHAIR AT 1830.
--- NOTE | 2017-09-30 18:41 | NUR ---
I TOOK REPORT ON THE PATIENT FROM [facility] ON TELE. PATIENT [facility] TRANSFERING [facility]. OF 1844, PATIENT STILL IS NOT ON UNIT. I WAS INFORMED IN REPORT THAT PATIENT IS HERE BECAUSE HER CENTRAL LINE BECAME DISLODGED AND WAS INFECTED. MRSA IS IN THE BLOOD AND PATIENT IS ON ISOLATION. NEW PICC WAS PLACED IN THE UPPER RIGHT ARM. PATIENT IS TO GET PROTONIX FOR THE NEXT 60 DAYS. ALERT AND ORIENTED X4, SHE IS NOW MED/SURG STATUS. SHE IS UP WITH X1 ASSIST; FROM HOME ALONE AND PLANS TO D/C ON 10/01. PATIENT ARRIVED AT 1850.
--- NOTE | 2017-10-01 05:40 | NUR ---
PATIENT HAS REMAINED ALERT AND ORIENTED X 4 THROUGHOUT THE SHIFT AND RESTING QUIETLY ON HOURLY ROUNDS. NEWLY ORDERED VANCOMYCIN PROVIDED PER ORDERS POST TROUGH LEVEL. NEW RIGHT PICC FUNCTIONING WELL. INCONT URINE. Q2H CHECKS AND TURNS. AFEBRILE. VITAL SIGNS STABLE. CONTINUE TO MONITOR.
--- NOTE | 2017-10-01 06:18 | NUR ---
LEFT IV LINE THAT WAS ORGINALLY A MIDLINE BUT LATER STATED TO BE A PERIPHERAL LINE DUE TO BEING PARTIALLY PULLED OUT WAS MARKED SUCH. THIS LINE PATENT TO FLUSH. RIGHT UPPER MEDIAL CHEST SITE OF OLD TICC LINE APPEARS TO BE HEALING. AREA IS DRY. SLIGHT PINKNESS BARELY VISABLE. ACTUAL INSERT SITE NOTED BY A SMALL RED SPOT. REDRESSED WITH BANDAID AND ORDERED ABX OINTMENT THIS AM.
[2017-10-01 07:57] VITALS: BP 133/68
--- NOTE | 2017-10-01 10:03 | NUR ---
ASSUMED CARE OF PT THIS AM AROUND 0715- UPON ASSESSMENT PT NOTED TO BE RESTING IN BED- PT A&O X3- CONTINENT VS INCONTINENT OF BOWEL AND BLADDER- ASSIST X1 WITH TRANSFERS- LCTA, RESP EVEN AND UN-LABORED- VSS, O2 SAT 94% ON 1L VIA NC- ABDOMEN SOFT/ROUND/NON-TENDER, BS X4 QUADS- BM NOTED THIS AM- +1 BLE EDEMA NOTED, LEG ELEVATION IN PLACE AND ENCOURAED INDICATED- RUE PICC NOTED INTACT, IVF INFUSING PRESCIBED- LUE MIDLINE D/C'D THIS AM, PRESSURE DRESSING APPLIED- PT UP TO BED SIDE CHAIR THIS AM WITH BREAKFAST, GOOD PO INTAKE NOTED- DENIES ANY C/O PAIN/DISCOMFORT AT THIS TIME- CALL LIGHT AND PERSONAL BELONGINGS WITH IN REACH- HOURLY ROUNDS IN PLACE R/T SAFETY/NEEDS- ALL NEEDS MET AT THIS TIME-WC
[2017-10-01] MEDS ORDERED: THERAGRAN-M PR1 EAC1 PO (10:12)
[2017-10-01 10:42] VITALS: BP 133/68
--- NOTE | 2017-10-01 11:48 | NUR ---
YESSY followed up on pt to dc home with family today and [facility] services to follow with [facility] company providing IV abx. YESSY called and spoke with Cristian/sharmaine of [employer] and faxed needed referral information and orders for resumption of care and nursing, PT, OT. [phone] fax [phone]. YESSY called and spoke with Michael to confirm IV abx and faxed dc orders, med list, PICC line placement information. fax [phone]. Pt family to provide pt ride home.
[2017-10-01 11:51] VITALS: BP 133/68
[2017-10-01] MEDS ORDERED: VANCO1GM IV (12:16)
--- NOTE | 2017-10-01 15:00 | NUR ---
ORDERS RECIEVED FOR [facility]ILMAR TO D/C HOME THIS SHIFT PER WITH TO DOSE ABT PRIOR TO D/C- HERE TO ASSESS WITH ORDERS NOTED FOR VANCO 750MG DAILY X2 WEEKS, WITH F/U IN 2 WEEKS ADN CALL FOR RE[facility] NOTED- SET UP TO MANAGE AND TEACH IV ADMINISTRATION AND CARE, UNABLE TO CONFIRM THAT THEY WILL BE ABLE TO GIVE SCHEDULED VANC AT 1900 TODAY THOUGH- CALLED WITH [facility] RECIEVED TO GIVE DOSE EARLY AT 1300 THIS SHIFT CHANGE TO DAILY AT 1300- DOSE GIVEN THIS SHIFT PRIOR TO D/C INDICATED- PICC TO RUE INTACT AND SL AT TIME OF D/C- D/C TEACHING GIVEN TO PT AND DAUGHTER AT TIME OF D/C, WITH ALL QUESTIONS AND CONCERNS ADDRESSED PRIOR TO D/C- WRITTEN EDUCATION ALONG WITH SCRIPTS PROVIDED TO PT AT TIMEM OF D/C- BELONGINGS PACKED AND ACCOUNTED FOR PER DAUGHTER- PT ESCORTED PER TECH VIA W/C WITH BELONGINGS; SOPHIA AT SIDE TO VEHICLE- D/C AT 1505, NO PROBLEMS TO NOTED AT TIME OF D/C
== END 2017-10-01 15:06 | disposition home health service (06) | DRG 314 ==
LOC: M.ERS 10:27 → M.2W 11:17 → M.TBA-ER 11:17 → M.ORTHSURG 13:39 → M.2W 17:44 → M.3W 09-30 18:55
PROVIDERS: Internal Medicine Gastroenterology; Internal Medicine Infectious Disease; Physician Assistant; ADMIT Family Medicine
PROC: B54NZZA Ultrasonography of Left Upper Extremity Veins, Guidance (ICD-10-PCS; principal; 2017-09-24)
PROC: 05HY33Z Insertion of Infusion Device into Upper Vein, Percutaneous Approach (ICD-10-PCS; principal; 2017-09-24)
PROC: 0D758ZZ Dilation of Esophagus, Via Natural or Artificial Opening Endoscopic (ICD-10-PCS; 2017-09-30)
DX: T82.7XXA Infection and inflammatory reaction due to other cardiac and vascular devices, implants and grafts, initial encounter (principal); E43 Unspecified severe protein-calorie malnutrition; A41.02 Sepsis due to Methicillin resistant Staphylococcus aureus; J96.10 Chronic respiratory failure, unspecified whether with hypoxia or hypercapnia; E03.9 Hypothyroidism, unspecified; F32.9 Major depressive disorder, single episode, unspecified; M19.90 Unspecified osteoarthritis, unspecified site; R26.9 Unspecified abnormalities of gait and mobility; E87.6 Hypokalemia; K21.0 Gastro-esophageal reflux disease with esophagitis; K22.2 Esophageal obstruction; K44.9 Diaphragmatic hernia without obstruction or gangrene; M48.061 Spinal stenosis, lumbar region without neurogenic claudication; D64.9 Anemia, unspecified; D69.6 Thrombocytopenia, unspecified; Z86.711 Personal history of pulmonary embolism; Z90.49 Acquired absence of other specified parts of digestive tract; Z79.52 Long term (current) use of systemic steroids; Z79.899 Other long term (current) drug therapy; Z88.1 Allergy status to other antibiotic agents; Z88.8 Allergy status to other drugs, medicaments and biological substances; Z82.0 Family history of epilepsy and other diseases of the nervous system; Z80.8 Family history of malignant neoplasm of other organs or systems; Z83.3 Family history of diabetes mellitus; Z82.5 Family history of asthma and other chronic lower respiratory diseases

== ENCOUNTER 2018-06-10 12:49 | Inpatient (IN) | payer MEDICARE, OTHER ==
[~2018-06-10] VITALS: Ht 152.4 cm; Wt 63.0 kg
[~2018-06-10 12:49] MED LIST changes: +THERAGRAN-M PR1 EAC1 PO; +VANCO1GM IV
[2018-06-10 12:57] VITALS: BP 128/53
[2018-06-10] MEDS ORDERED: SLOW FE 160MG160 MG PO (13:18)
[2018-06-10] MEDS ORDERED: MACRODANTIN100 MG PO (13:19)
[2018-06-10 14:23] LABS: ABSOLUTE MONOCYTES 0.4 thou/uL (0.0-1.2); BASOPHILS 0.5 %; EOSINOPHILS 0.5 %; HEMATOCRIT 34.5 % (37.0-47.0); HEMOGLOBIN 11.8 gm/dL (12.0-15.0); LYMPHOCYTES 13.8 %; MCH 31.8 pg (26.0-34.0); MCHC 34.3 g/dL (28.0-37.0); MCV 92.8 fL (80.0-100.0); MONOCYTES 5.6 %; MPV 7.3 fl. (7.2-11.1); NUCLEATED RBCS 0 /100WBC; PLATELET COUNT* 184 thou/uL (150-400); POLYS 79.6 %; RBC 3.72 mil/uL (4.20-5.00); RDW-CV 13.9 % (10.5-14.5); WBC 7.6 thou/uL (4.0-11.0)
[2018-06-10 14:44] LABS: ALBUMIN 3.4 g/dL (3.4-5.0); ALKALINE PHOSPHATASE 49 U/L (46-116); ANION GAP 5 mmol/L (7-16); BUN 27 mg/dL (7-18); CALCIUM 9.5 mg/dL (8.5-10.1); CHLORIDE 106 mmol/L (98-107); CO2 32 mmol/L (21-32); CREATININE 1.1 mg/dL (0.6-1.3); GLUCOSE 116 mg/dL (70-99); SGOT 16 U/L (15-37); SGPT 14 U/L (30-65); SODIUM 143 mmol/L (136-145); TOTAL BILIRUBIN 0.5 mg/dL (<0.1-1.0); TOTAL PROTEIN 6.8 g/dL (6.4-8.2); TROPONIN-I LEVEL <0.06 ng/mL (<0.06)
[2018-06-10 15:25] LABS: INFLUENZA A ANTIGEN None Detected (None Detect); INFLUENZA B ANTIGEN None Detected (None Detect)
[2018-06-10 16:05] LABS: URINE BILIRUBIN NEGATIVE (Negative); URINE BLOOD NEGATIVE (Negative); URINE CLARITY CLEAR; URINE COLOR YELLOW; URINE GLUCOSE-RANDOM NEGATIVE (Negative); URINE KETONES NEGATIVE (Negative); URINE LEUKOCYTES-REFLEX NEGATIVE (Negative); URINE NITRITE-REFLEX NEGATIVE (Negative); URINE PROTEIN NEGATIVE (Negative); URINE UROBILINOGEN 0.2 E.U./dl (0.2-1.0)
[2018-06-10 16:14] VITALS: BP 137/67
[2018-06-10 16:50] VITALS: BP 138/66
[2018-06-10 20:00] VITALS: BP 140/68
[2018-06-11] VITALS: BP 141/64
[2018-06-11 04:25] LABS: HEMATOCRIT 31.8 % (37.0-47.0); HEMOGLOBIN 10.8 gm/dL (12.0-15.0); MCH 31.5 pg (26.0-34.0); MCHC 33.9 g/dL (28.0-37.0); MCV 92.8 fL (80.0-100.0); MPV 7.7 fl. (7.2-11.1); RBC 3.43 mil/uL (4.20-5.00); RDW-CV 13.7 % (10.5-14.5); WBC 7.1 thou/uL (4.0-11.0)
[2018-06-11 04:33] VITALS: BP 142/71
[2018-06-11 04:44] LABS: CALCIUM 8.9 mg/dL (8.5-10.1); CREATININE 1.1 mg/dL (0.6-1.3); MAGNESIUM 1.9 mg/dL (1.8-2.4)
[2018-06-11 08:43] VITALS: BP 163/64
[2018-06-11 12:45] VITALS: BP 139/51
[2018-06-11 16:22] VITALS: BP 132/96
[2018-06-12 01:15] VITALS: BP 156/58
[2018-06-12 05:05] LABS: HEMATOCRIT 31.7 % (37.0-47.0); HEMOGLOBIN 10.6 gm/dL (12.0-15.0); MCHC 33.3 g/dL (28.0-37.0); MCV 92.9 fL (80.0-100.0); MPV 7.7 fl. (7.2-11.1); NUCLEATED RBCS 0 /100WBC; PLATELET COUNT* 174 thou/uL (150-400); RBC 3.41 mil/uL (4.20-5.00); RDW-CV 13.9 % (10.5-14.5); WBC 11.1 thou/uL (4.0-11.0)
[2018-06-12 07:48] LABS: ABSOLUTE LYMPHOCYTES 0.9 thou/uL (0.8-5.3); ABSOLUTE MONOCYTES 0.3 thou/uL (0.0-1.2); ABSOLUTE NEUTROPHILS 9.9 thou/uL (1.6-8.1)
[2018-06-12 07:52] LABS: GIANT PLATELETS RARE; PLATELET ESTIMATE ADEQUATE
[2018-06-12 07:53] LABS: ANISOCYTOSIS 2+; OVALOCYTES Occasional; TEARDROPS 1+
[2018-06-12 07:54] LABS: SCHISTOCYTES Occasional
[2018-06-12 10:07] VITALS: BP 138/58
--- NOTE | 2018-06-12 14:59 | EKG ---
[place] [address] ELECTROCARDIOGRAM REPORT Name: CEZAR MCDOWELL Room: [address] ADM IN M.R.#: [id number] Admission: 06/10/18 Attend Phys: Michelle Renae MD Discharge: Date of : [birth year] Report #: [id number] THIS REPORT FOR: //name// [facility] ED Test Date: 2018-06-10 Test Time: 13:57:38 Pat Name: CEZAR MCDOWELL Department: Room: [facility] Gender: F Switch Cleaner: Darrick DESIR : 1930 Requested By: Frida Garcia Order Number: [id number] MD: Jerman Holman Measurements Intervals [place] Rate: 73 P: 58 OR: 160 QRS: -9 QRSD: 79 T: 49 QT: 389 QTc: 429 Interpretive Statements Sinus rhythm Low voltage, precordial leads Compared to ECG 09/28/2017 18:13:28 Low QRS voltage now present Sinus tachycardia no longer present Electronically Signed On 06-12-2018 14:59:40 CDT by Jerman Holman [email or web address] <ELECTRONICALLY SIGNED> By: Jerman Holman MD, FACC 06/12/18 1459 [id number] [id number] Jerman Holman MD, FAC /EPI
[2018-06-12 17:21] VITALS: BP 150/71
[2018-06-13] VITALS: BP 159/82
[2018-06-13 04:00] VITALS: BP 153/75
[2018-06-13 09:40] VITALS: BP 148/74
[2018-06-13] MEDS ORDERED: PREDNISONE 10 M10 MG PO (11:13)
[2018-06-13] MEDS ORDERED: AZITHROMYCIN 2250 MG PO (11:13)
[2018-06-13] MEDS ORDERED: CEFDINIR300 MG PO (11:13)
[2018-06-13] MEDS ORDERED: IPRAT-ALBUT 0.5-3 ML INH (11:13)
[2018-06-13 11:46] VITALS: BP 148/74
== END 2018-06-13 12:45 | disposition home or self-care (01) | DRG 193 ==
LOC: M.ERS 12:49 → M.3W 13:58 → M.TBA-ER 13:58 → M.3W 16:24
PROVIDERS: Physician Assistant; ADMIT Internal Medicine
PROC: 05HY33Z Insertion of Infusion Device into Upper Vein, Percutaneous Approach (ICD-10-PCS; principal; 2018-06-10)
DX: J18.1 Lobar pneumonia, unspecified organism (principal); J96.01 Acute respiratory failure with hypoxia; Z87.891 Personal history of nicotine dependence; L40.9 Psoriasis, unspecified; K21.9 Gastro-esophageal reflux disease without esophagitis; M19.90 Unspecified osteoarthritis, unspecified site; E03.9 Hypothyroidism, unspecified; F32.9 Major depressive disorder, single episode, unspecified; J40 Bronchitis, not specified as acute or chronic; M48.00 Spinal stenosis, site unspecified; Z79.01 Long term (current) use of anticoagulants; Z86.711 Personal history of pulmonary embolism; Z87.81 Personal history of (healed) traumatic fracture; Z79.899 Other long term (current) drug therapy; Z88.2 Allergy status to sulfonamides; Z88.1 Allergy status to other antibiotic agents

== ENCOUNTER 2019-01-18 12:42 | Inpatient (IN) | payer MEDICARE, OTHER ==
[~2019-01-18] VITALS: Ht 154.9 cm; Wt 59.9 kg
[~2019-01-18 12:42] MED LIST changes: +ALEVE220 MG PO; +CEFDINIR300 MG PO; +IPRAT-ALBUT 0.5-3 ML INH; +MACRODANTIN100 MG PO; +PREDNISONE 10 M10 MG PO; +PROPRANOLOL 1010 MG PO; +SLOW FE 160MG160 MG PO; +SYNTHROID75 MCG PO
[2019-01-18 12:57] VITALS: BP 117/53
[2019-01-18 13:26] LABS: ABSOLUTE EOSINOPHILS 0.1 thou/uL (0.0-0.7); ABSOLUTE MONOCYTES 0.6 thou/uL (0.0-1.2); ABSOLUTE NEUTROPHILS 6.3 thou/uL (1.6-8.1); BASOPHILS 0.4 %; EOSINOPHILS 0.9 %; HEMATOCRIT 35.8 % (37.0-47.0); HEMOGLOBIN 12.1 gm/dL (12.0-15.0); LYMPHOCYTES 21.7 %; MCH 30.7 pg (26.0-34.0); MCHC 33.7 g/dL (28.0-37.0); MPV 7.5 fl. (7.2-11.1); NUCLEATED RBCS 0 /100WBC; PLATELET COUNT* 208 thou/uL (150-400); RBC 3.93 mil/uL (4.20-5.00); RDW-CV 15.4 % (10.5-14.5)
[2019-01-18 13:34] LABS: CALCIUM 9.7 mg/dL (8.5-10.1); CREATININE 1.7 mg/dL (0.6-1.3); POTASSIUM 4.5 mmol/L (3.5-5.1)
[2019-01-18 13:35] LABS: APTT 39.6 Seconds (25.0-31.3); INR 1.5; PROTIME 15.5 Seconds (9.20-11.50)
[2019-01-18 13:45] LABS: ALBUMIN 3.9 g/dL (3.4-5.0); TOTAL BILIRUBIN 0.4 mg/dL (<0.1-1.0)
[2019-01-18 14:30] LABS: URINE BILIRUBIN NEGATIVE (Negative); URINE BLOOD 3+ (Negative); URINE CLARITY CLOUDY; URINE COLOR BROWN; URINE GLUCOSE-RANDOM NEGATIVE (Negative); URINE KETONES TRACE (Negative); URINE LEUKOCYTES-REFLEX TRACE (Negative); URINE NITRITE-REFLEX NEGATIVE (Negative); URINE PROTEIN TRACE (Negative); URINE SPECIFIC GRAVITY 1.025 (1.005-1.030); URINE UROBILINOGEN 0.2 E.U./dl (0.2-1.0)
[2019-01-18 14:40] LABS: SQUAMOUS 4-10 Moderate /LPF (0-3)
[2019-01-18 14:41] LABS: URINE RBC >20 Many /HPF (0-2)
[2019-01-18 14:43] LABS: BACTERIA-REFLEX 1-9 Few /HPF (None Seen); URINE WBC-REFLEX 0-5 Rare /HPF (0-5)
[2019-01-18 14:44] LABS: AMORPHOUS URATES Moderate /LPF (None Seen); CASTS None Seen /LPF (None Seen); MUCUS None Seen strn/LPF (None Seen)
[2019-01-18 15:33] VITALS: BP 115/80
[2019-01-18 15:34] VITALS: BP 124/53
[2019-01-18 20:20] VITALS: BP 115/50
[2019-01-19] VITALS (7 sets, daily range): BP systolic 82–139; BP diastolic 41–69
[2019-01-19 01:06] LABS: URINE BILIRUBIN NEGATIVE (Negative); URINE BLOOD 3+ (Negative); URINE CLARITY CLEAR; URINE COLOR YELLOW; URINE GLUCOSE-RANDOM NEGATIVE (Negative); URINE KETONES NEGATIVE (Negative); URINE LEUKOCYTES-REFLEX NEGATIVE (Negative); URINE NITRITE-REFLEX NEGATIVE (Negative); URINE PROTEIN NEGATIVE (Negative); URINE SPECIFIC GRAVITY <= 1.005 (1.005-1.030); URINE UROBILINOGEN 0.2 E.U./dl (0.2-1.0)
[2019-01-19 01:15] LABS: SQUAMOUS 0-3 Few /LPF (0-3)
[2019-01-19 01:16] LABS: CASTS None Seen /LPF (None Seen); CRYSTALS None Seen /LPF (None Seen); MUCUS 0-3 Light strn/LPF (None Seen); TRANSITIONAL EPITHEL CELL 0-3 Few /LPF (None Seen); URINE RBC >20 Many /HPF (0-2); URINE WBC-REFLEX 6-15 Few /HPF (0-5)
[2019-01-19 05:00] LABS: HEMATOCRIT 30.5 % (37.0-47.0); MCH 30.1 pg (26.0-34.0); MCV 91.1 fL (80.0-100.0); MPV 7.5 fl. (7.2-11.1); RBC 3.34 mil/uL (4.20-5.00); RDW-CV 14.8 % (10.5-14.5); WBC 5.9 thou/uL (4.0-11.0)
[2019-01-19 05:06] LABS: HEMOGLOBIN 10.1 gm/dL (12.0-15.0)
[2019-01-19 05:13] LABS: ALBUMIN 3.1 g/dL (3.4-5.0); CREATININE 1.3 mg/dL (0.6-1.3); MAGNESIUM 1.8 mg/dL (1.8-2.4); POTASSIUM 4.9 mmol/L (3.5-5.1); TOTAL BILIRUBIN 0.3 mg/dL (<0.1-1.0); TOTAL PROTEIN 5.8 g/dL (6.4-8.2)
--- NOTE | 2019-01-19 10:00 | EKG ---
[place] [address] ELECTROCARDIOGRAM REPORT Name: CEZAR MCDOWELL Room: [address] ADM IN M.R.#: [id number] Admission: 01/18/19 Attend Phys: Michelle Renae MD Discharge: Date of : [birth year] Report #: [id number] THIS REPORT FOR: //name// [facility] ED Test Date: 2019-01-18 Test Time: 13:02:56 Pat Name: CEZAR MCDOWELL Department: Room: [facility] Gender: F Bogger Operator: PARESH : 1930 Requested By: Jay Jay Quach Order Number: [id number] MD: Jordan Gutierrez Measurements Intervals [place] Rate: 70 P: 75 NM: 150 QRS: 4 QRSD: 82 T: 61 QT: 373 QTc: 403 Interpretive Statements Sinus rhythm Baseline wander in lead(s) III Compared to ECG 06/10/2018 13:57:38 No significant changes Electronically Signed On 01-19-2019 10:00:25 CDT by Jordan Gutierrez [email or web address] <ELECTRONICALLY SIGNED> By: Jordan Gutierrez MD, FAC 01/19/19 1000 1302 130 Jordan Gutierrez MD, [facility] /EPI
[2019-01-20] VITALS (7 sets, daily range): BP systolic 91–161; BP diastolic 44–63
[2019-01-20 09:44] LABS: HEMATOCRIT 34.1 % (37.0-47.0); HEMOGLOBIN 11.8 gm/dL (12.0-15.0); MCH 31.3 pg (26.0-34.0); MCHC 34.5 g/dL (28.0-37.0); MCV 90.9 fL (80.0-100.0); MPV 7.5 fl. (7.2-11.1); RBC 3.75 mil/uL (4.20-5.00); RDW-CV 14.9 % (10.5-14.5); WBC 7.9 thou/uL (4.0-11.0)
[2019-01-20 09:51] LABS: CALCIUM 9.9 mg/dL (8.5-10.1); CREATININE 1.3 mg/dL (0.6-1.3); POTASSIUM 4.4 mmol/L (3.5-5.1)
[2019-01-21 03:46] VITALS: BP 104/50
[2019-01-21 07:45] VITALS: BP 119/48
[2019-01-21 11:22] VITALS: BP 97/43
[2019-01-21 15:11] VITALS: BP 97/43
== END 2019-01-21 15:38 | disposition home or self-care (01) | DRG 682 ==
LOC: M.ERS 12:42 → M.TBA-ER 14:29 → M.2W 14:29
PROVIDERS: Family Medicine; ADMIT Internal Medicine
DX: N17.9 Acute kidney failure, unspecified (principal); G92 Toxic encephalopathy; E86.0 Dehydration; M48.00 Spinal stenosis, site unspecified; K22.8 Other specified diseases of esophagus; K21.9 Gastro-esophageal reflux disease without esophagitis; E03.9 Hypothyroidism, unspecified; F32.9 Major depressive disorder, single episode, unspecified; Z86.711 Personal history of pulmonary embolism; Z79.899 Other long term (current) drug therapy; Z88.1 Allergy status to other antibiotic agents; Z88.8 Allergy status to other drugs, medicaments and biological substances